=== PATIENT | male | born 1975 | race Caucasian/White ===

== ENCOUNTER 2024-03-05 09:41 | Day surgery (SDC) | payer OTHER, SELFPAY ==
[2024-03-05] VITALS (8 sets, daily range): BP systolic 91–134; BP diastolic 47–94; PULSE 67–81; RESP 16–18; TEMP 36.1–36.7; O2SAT 95–100; BMI 33.5
[2024-03-05] MEDS: Lactated Ringers 1,000 ML 15 ML IV (10:05)
--- NOTE | 2024-03-05 10:25 | PCM.PRE.AN2 ---
ASA Classification* ASA Classification ASA Classification: 2 Assessment & Plan Anesthesia* Anesthesia Assessment Anesthesia Assessment: Discussed sedation and/or anesthesia options, risks, benefits, and alternatives with patient/parents/legal guardian/POA. Questions invited. The patient/parents/legal guardian/POA seems to understand and agrees to proceed with anesthesia plan. Reviewed the physical assessment, medical history, allergy history and patient home medications list prior to surgery/procedure/anesthetic and documented any changes. Performed airway and anesthesia risk assessments. Anesthesia Type Anesthesia Type: MAC History Source History Obtained from:: Patient and Chart Anesthesia Focused Assessment* Temperature: 97 F Pulse Rate: 67 Blood Pressure: 134/94 Respiratory Rate: 17 Pulse Ox: 100 Oxygen Delivery Method: Room Air Airway Assessment Mouth opens: >3 cm Mallampati Score: III Teeth Condition: Caps/Crowns (Patient has a couple of crowns on his molars. 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 When Was Last Pacemaker Check QUESTION #4 FULL TEXT: You/Your Family Experience fever (hyperthermia) with Anesthesia Last Oral Intake Last Oral intake: Last Oral Intake NPO since 00:00 03/05/24 10:05 Meds taken in AM with sips of No 03/05/24 10:05 water? Meds patient instructed to take am of surgery Any additional information?: Yes NPO since: 07:00 (Patient finished prep at 7 AM.) PONV PONV - energy efficient site manager: PONV - energy efficient site manager Female No 03/01/24 10:41 HX of Motion Sickness Yes 03/01/24 10:41 HX of N/V After Surgery No 03/01/24 10:41 Non-Smoker Yes 03/01/24 10:41 Duration of Surgery greater Yes 03/01/24 10:41 than 60 minutes Number of Risk Factors 3 03/01/24 10:41 PONV Score Moderate Risk 03/01/24 10:41 Height & Weight Height & Weight: Anesthesia: Height & Weight Height 6 ft 03/05/24 10:05 Weight: 112 kg 03/05/24 10:05 Body Mass Index (BMI) 33.5 03/05/24 10:05 Respiratory Assessment Respiratory Assessment - energy efficient site manager: Respiratory Tract Infection Hx - energy efficient site manager Hx Respiratory Tract Infection No 03/01/24 10:41 STOP Sleep Apnea STOP Sleep Apnea - energy efficient site manager: STOP Sleep Apnea - energy efficient site manager Hx Hypertension Yes: CONTROLLED ON MED 03/01/24 10:41 Hx Sleep Apnea No 03/01/24 10:41 CPAP BIPAP Do you snore loudly (louder No 03/01/24 10:41 than talking or can be heard Do you often feel tired/ No 03/01/24 10:41 fatigued/ sleepy during daytime? Has anyone observed you stop No 03/01/24 10:41 breathing during sleep? STOP Results Negative 03/01/24 10:41 QUESTION #5 FULL TEXT : Do you snore loudly (louder than talking or can be heard through closed doors)? 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 Specify any problems Hx of Preganancy in last 3 N/A 03/01/24 10:41 Months Nurse Filling Out Transfusion VCHRISTIN 03/01/24 10:41 & Questions: Date: 03/01/24 03/01/24 10:41 Time: 10:42 03/01/24 10:41 Patient unable to answer at this time (ie. confused, unrespo /Reproduction History /Reproductive History - energy efficient site manager: /Reproductive Hx- energy efficient site manager Hx Now Gestational Age (in weeks): EDC: Hx Hx Para Hx Section SAB Active Medications Active Medications: Current Medications Generic Name Dose Route Start Last Admin Trade Name Freq PRN Reason Stop Dose Admin Lactated Ringer's 1,000 mls @ 15 mls/hr 03/05/24 10:00 03/05/24 10:05 IV 15 mls/hr .Q48H ANU Administration PFSH Medical History Alcohol use Back pain Injury of head and neck Chewing tobacco dependence in remission Hx of fracture of arm HTN (hypertension) Home Medications ?Medication ?Instructions ?Recorded ?Last Taken ?Type aspirin 81 mg tablet,delayed 81 mg PO DAILY 01/17/24 02/27/24 History release (Adult Low Dose Aspirin) lisinopril 10 mg tablet 10 mg PO DAILY 01/17/24 03/04/24 History Allergy/AdvReac Type Severity Reaction Status Date / Time No Known Allergies Allergy Verified 03/05/24 10:05 Family History Unknown Thyroid disorder Surgical History (Updated 03/05/24 @ 10:35 by Chelita Preston) History of open reduction and internal fixation (ORIF) procedure Hx of tonsillectomy Hx of vasectomy Social History household members: spouse and children current occupational status: employed current occupation: [employer] Smoking Status: Former smoker how long ago did patient quit smoking: Former smokeless tobacco user substance use type: does not use Review of Systems (Anesthesia) ROS Narrative System reviewed and no additional complaints, except as documented.
--- NOTE | 2024-03-05 10:41 | HP.PCM_ITS ---
HPI - General HPI Narrative GUY HORN, is a 48 M who presents for screening colonoscopy. He has never had a colonoscopy in the past. He denies abdominal pain or blood in the stool. He has no family history of colon cancer. [facility] Medical History Alcohol use Back pain Injury of head and neck Chewing tobacco dependence in remission Hx of fracture of arm HTN (hypertension) Home Medications ?Medication ?Instructions ?Recorded ?Last Taken ?Type aspirin 81 mg tablet,delayed 81 mg PO DAILY 01/17/24 02/27/24 History release (Adult Low Dose Aspirin) lisinopril 10 mg tablet 10 mg PO DAILY 01/17/24 03/04/24 History Allergy/AdvReac Type Severity Reaction Status Date / Time No Known Allergies Allergy Verified 03/05/24 10:05 Family History Unknown Thyroid disorder Surgical History (Updated 03/05/24 @ 10:35 by Chelita Preston) History of open reduction and internal fixation (ORIF) procedure Hx of tonsillectomy Hx of vasectomy Social History household members: spouse and children current occupational status: employed current occupation: [employer] Smoking Status: Former smoker how long ago did patient quit smoking: Former smokeless tobacco user substance use type: does not use Past Medical/Surgical History Planned Operation Planned Operative Procedure(s): COLONOSCOPY-OA Previous Hospitalizations/Surgeries HX Hospitalizations: No Any Problems With Anesthesia: No You/Your Family Experience Fever (Hyperthermia) With Anes: No Cholinesterase deficiency: No Cardiovascular Hx Hypertension: Yes (CONTROLLED ON MED) Respiratory Hx Sleep Apnea: No Hx Respiratory Tract Infection/Cold (presently): No Do You Snore Loudly (louder than talking or can be heard): No Do You Often Feel Tired/ Fatigued/ Sleepy Dring Daytime?: No Has Anyone Observed You Stop Breathing During Sleep?: No Result (for STOP score): Negative Smoking Status: Former smoker Neurological Does patient have nerve stimulator: No Miscellaneous Recent Exposure to Contagious Disease: No Allergies No Known Allergies Allergy (Verified 03/05/24 10:05) Discharge Is Pt Admitted From a Custodial, or a Detention: No After D/C, Where Do you Plan to Go: Return Home Vital Signs Vital Signs Vital Signs: 03/05/24 10:05 03/05/24 10:05 03/05/24 10:35 Temperature 97 F L 97 F L Temperature Source Temporal Pulse Rate 67 67 Respiratory Rate 17 17 Respiratory Pattern Normal Blood Pressure 134/94 H 134/94 H Blood Pressure Mean 107 Blood Pressure Source Monitor Blood Pressure Position Semi-Fowlers Blood Pressure Location Left Arm Pulse Ox 100 100 Oxygen Delivery Method Room Air Room Air Weight Weight: 246 lb 14.684 oz Body Mass Index (BMI) 33.5 Physical Exam Const alert and oriented x3 HEENT normocephalic Eyes PERRL Resp normal respiratory effort and normal air movement Cardio regular rate and regular rhythm GI soft to palpation, non-tender and non-distended Extremity normal to inspection Assessment & Plan Assessment/Plan (1) Encounter for screening for malignant neoplasm of colon: PLAN: I explained endoscopy in detail to the patient. I explained the risks including but not limited to stroke or heart attack with anesthesia, perforation of the GI tract, bleeding, infection. I explained that any of these could necessitate further emergency surgery. The patient understands and all questions were answered sufficiently. The patient wishes to proceed with procedure. Vern Hoffman MD Pager: [facility] [address] [place] [address], [address] [place] [address] Office: Surgery Risks - Colonoscopy Risks Include but are not Limited To: Risks include but are not limited to: Bleeding, perforation requiring further surgery, inability to complete colonoscopy requiring barium enema.
--- NOTE | 2024-03-05 11:11 | OP.CCLET_ITS ---
03/05/2024 Bailee Albarado Re : Colonoscopy procedure for Leroy Albarado This procedure was performed on Tuesday, March 05, 2024. My impressions and recommendations are as follows: Impressions : - The entire examined colon is normal on direct and retroflexion views. - No specimens collected. Recommendations : - Discharge patient to home. - Resume previous diet. - Continue present medications. - Repeat colonoscopy in 10 years for screening purposes. My findings are described in the full procedure note, which is enclosed. If I can be of further assistance, please feel free to contact me at Doctor phone number(s): , Work: . Sincerely, Vern Hoffman MD 03/05/2024 11:11:14 AM This report has been signed electronically.
--- NOTE | 2024-03-05 11:11 | OP.COLON_ITS ---
Patient Name: Leroy Ramirez Procedure Date: 03/05/2024 10:47 AM Date of : 1975 Age: 48 Procedure: Colonoscopy Indications: Screening for colorectal malignant neoplasm Providers: Vern Hoffman MD Medicines: Propofol per Anesthesia Patient Profile: This is a 48 year old male. Refer to note in patient chart for documentation of history and physical. Last Colonoscopy: none. The patient's first colonoscopy is today. Complications: No immediate complications. Procedure: Pre-Anesthesia Assessment: - Prior to the procedure, a History and Physical was performed, and patient medications and allergies were reviewed. The patient's tolerance of previous anesthesia was also reviewed. The risks and benefits of the procedure and the sedation options and risks were discussed with the patient. All questions were answered, and informed consent was obtained. Prior Anticoagulants: The patient has taken no anticoagulant or antiplatelet agents. After reviewing the risks and benefits, the patient was deemed in satisfactory condition to undergo the procedure. After I obtained informed consent, the scope was passed under direct vision. Throughout the procedure, the patient's blood pressure, pulse, and oxygen saturations were monitored continuously. The Colonoscope was introduced through the anus and advanced to the cecum, identified by appendiceal orifice and ileocecal valve. The colonoscopy was performed without difficulty. The patient tolerated the procedure well. The quality of the bowel preparation was good. The ileocecal valve, appendiceal orifice, and rectum were photographed. Scope In: 10:59:18 AM Scope Withdrawal Time 0 hours 5 minutes 19 seconds Scope Out: 11:08:32 AM Total Procedure Duration Time 0 hours 9 minutes 14 seconds Findings: The entire examined colon appeared normal on direct and retroflexion views. Impression: - The entire examined colon is normal on direct and retroflexion views. - No specimens collected. Recommendation: - Discharge patient to home. - Resume previous diet. - Continue present medications. - Repeat colonoscopy in 10 years for screening purposes. Procedure Code(s): --- Professional --- 41333, Colonoscopy, flexible; diagnostic, including collection of specimen(s) by brushing or washing, when performed (separate procedure) Diagnosis Code(s): --- Professional --- Z12.11, Encounter for screening for malignant neoplasm of colon CPT copyright 2021 [employer]. All rights reserved. The codes documented in this report are preliminary and upon early childhood assistant review may be revised to meet current compliance requirements. Vern Hoffman MD 03/05/2024 11:11:14 AM This report has been signed electronically. Number of Addenda: 0 Note Initiated On: 03/05/2024 10:47 AM
--- NOTE | 2024-03-05 11:22 | PCM.POST.ANE ---
Anesthesia: Postop Eval I Current Vital Signs Temperature: 97.9 F Pulse Rate: 72 Blood Pressure: 91/47 Respiratory Rate: 16 Pulse Ox: 97 Oxygen Delivery Method: Room Air Assessment Airway patent: Yes Spontaneous unlabored respirations: Yes Mental status: Awake and Calm nausea: No Vomiting: No Anesthesia Complication: No Fluid Hydration Crystalloid volume administer (ml): 600 Total IV fluid infused: 600 Progress Note Anesthesia document: Postop Eval 1 completed: Yes
--- NOTE | 2024-03-05 11:38 | PCM.POSTANE2 ---
Anesthesia Postop Eval I Sum Postop Eval Completion status Anesthesia document: Postop Eval 1 completed: Yes Anesthesia Postop Eval I Summary Anesthesia Postop Eval I Summary: Anesthesia Postop Eval I: Assessment Summary Airway patent Yes 03/05/24 11:23 [email or web address] Spontaneous unlabored Yes 03/05/24 11:23 [email or web address] respirations Mental status Awake,Calm 03/05/24 11:23 [email or web address] nausea No 03/05/24 11:23 [email or web address] Vomiting No 03/05/24 11:23 [email or web address] Anesthesia Postop Eval I: Fluid Summary Crystalloid volume administer 600 03/05/24 11:23 [email or web address] (ml) Colloids volume administered ( ml) Blood Product volume administered (ml) Total IV fluid infused 600 03/05/24 11:23 [email or web address] Anesthesia Postop Eval I: Summary Notes Anesthesia Complication No 03/05/24 11:23 [email or web address] Anesthesia Complication Comment: Post-operative progress note Anesthesia: Postop Eval II Evaluation Mental status: Awake and Calm Pain Level: 0 nausea: No Vomiting: No Complications Anesthesia Complication: No
== END 2024-03-05 12:00 | disposition home or self-care (01) ==
LOC: EN 09:44 → AC 09:45
PROVIDERS: PCP Physician Assistant; Referring Provider Physician Assistant; Visit Provider Surgery
PROC: 0DJD8ZZ Inspection of Lower Intestinal Tract, Via Natural or Artificial Opening Endoscopic (ICD-10-PCS; CPT 45378; principal; 2024-03-05 11:10)
DX: Z12.11 Encounter for screening for malignant neoplasm of colon (principal); I10 Essential (primary) hypertension; Z87.891 Personal history of nicotine dependence; Z79.899 Other long term (current) drug therapy
CPT/HCPCS: 45378; J7120; J2405